=== PATIENT | male | born 1960 | race Caucasian/White ===

== ENCOUNTER 2017-12-07 11:41 | Inpatient (IN) | payer MEDICAID, OTHER ==
[~2017-12-07] VITALS: Ht 162.6 cm; Wt 63.5 kg
[2017-12-07] MEDS ORDERED: IBUP-2070 PO (11:58)
[2017-12-07 12:44] LABS: BASOPHILS % (AUTO) 1.6 % (0.0-2.0); EOSINOPHILS % (AUTO) 0.1 % (1.0-6.0); HEMATOCRIT 38.9 % (41-53); HEMOGLOBIN 13.6 g/dL (13.5-17.5); LYMPHOCYTES # (AUTO) 1.5 K/uL (1.0-4.8); MEAN CORPUSCULAR HEMOGLOBIN 34.7 pg (26.0-34.0); MEAN CORPUSCULAR HGB CONC 34.9 G/dL (31.0-37.0); MEAN CORPUSCULAR VOLUME 100 fL (80-100); MONOCYTES # (AUTO) 0.4 K/uL (0.1-1.0); NEUTROPHILS # (AUTO) 2.7 K/uL (1.8-7.7); NEUTROPHILS % (AUTO) 58.3 % (40.0-70.0); PLATELET COUNT (AUTO) 189 K/uL (150-450); RED BLOOD CELL COUNT(AUTO) 3.91 MIL/uL (4.50-5.90); RED CELL DISTRIBUTION WIDTH 14.7 % (11.5-14.5)
[2017-12-07 13:02] LABS: ANION GAP 11 mmol/L (8-16); CALCIUM, TOTAL 8.8 mg/dL (8.8-10.5); CARBON DIOXIDE 29 mmol/L (22-29); CHLORIDE 96 mmol/L (98-107); CREATININE 0.67 mg/dL (0.60-1.30); GLOMERULAR FILTR. RATE CALC > 60 mL/min (>60); GLUCOSE,RANDOM 96 mg/dL (70-110); POTASSIUM 4.7 mmol/L (3.5-5.1); SODIUM SERUM 136 mmol/L (136-145); UREA NITROGEN, BLOOD 3 mg/dL (7-18)
[2017-12-07 13:08] LABS: ALANINE AMINOTRANSFERASE 199 U/L (12-78); ALBUMIN 4.3 g/dL (3.4-5.0); ALKALINE PHOSPHATASE 94 U/L (46-116); ASPARTATE AMINOTRANSFERASE 208 U/L (15-37); BILIRUBIN,TOTAL 0.6 mg/dL (0.1-1.0); TOTAL PROTEIN, SERUM 7.9 g/dL (6.4-8.2)
[2017-12-07] MEDS ORDERED: ChlordiazePOXIDE HCL 25 MG CAPSULE PO ONE (13:30)
[2017-12-07] MEDS ORDERED: ACETAMINOPHEN 325 MG TABLET PO PRN (13:45)
[2017-12-07] MEDS ORDERED: OLANZapine 5 MG RAPDIS TABLET PO PRN (13:45)
[2017-12-07] MEDS ORDERED: HydrOXYzine PAMOATE 50 MG CAPSULE PO PRN (13:45)
[2017-12-07] MEDS ORDERED: LOPERAMIDE HCL 2 MG CAPSULE PO PRN (13:45)
[2017-12-07] MEDS ORDERED: MAGNESIUM HYDROXIDE SUSPENSION 30 ML UDCUP PO PRN (13:45)
[2017-12-07] MEDS ORDERED: MAG HYDROX/AL HYDROX/SIMETH ES 30 ML SUSPENSION UDCUP PO PRN (13:45)
[2017-12-07] MEDS ORDERED: TUBERCULIN, PURIFIED PROTEIN DERIVATIVE 5 TU/0.1 ML SYG ID ONE (13:45)
[2017-12-07] MEDS ORDERED: PROMETHAZINE HCL 25 MG TABLET PO PRN (13:45)
[2017-12-07] MEDS ORDERED: ZOLPIDEM TARTRATE 10 MG TABLET PO PRN (13:45)
[2017-12-07] MEDS ORDERED: GuaiFENesin/D-METHORPHAN [SUGAR-FREE] 200-20MG/10 ML SYRUP UDCUP PO PRN (13:45)
[2017-12-07] MEDS ORDERED: CYANOCOBALAMIN 1,000 MCG/ML VIAL IM ONE (13:45)
[2017-12-07] MEDS: DIAZEPAM 10 MG TABLET PO PRN ×2 (16:59→21:11)
[2017-12-07] MEDS: MIRTAZAPINE 15 MG TABLET PO SCH (21:10)
[2017-12-07] MEDS: THIAMINE HCL 100 MG TABLET PO SCH (21:23)
[2017-12-08] VITALS (10 sets, daily range): BP systolic 124–155; BP diastolic 73–96
[2017-12-08] MEDS ORDERED: DIAZEPAM 10 MG TABLET PO PRN (07:00)
[2017-12-08 08:55] LABS: BASOPHILS % (AUTO) 1.5 % (0.0-2.0); EOSINOPHILS % (AUTO) 0.7 % (1.0-6.0); HEMATOCRIT 38.6 % (41-53); HEMOGLOBIN 13.6 g/dL (13.5-17.5); LYMPHOCYTES # (AUTO) 1.9 K/uL (1.0-4.8); LYMPHOCYTES % (AUTO) 35.2 % (22.0-44.0); MEAN CORPUSCULAR HEMOGLOBIN 34.8 pg (26.0-34.0); MEAN CORPUSCULAR HGB CONC 35.2 G/dL (31.0-37.0); MEAN CORPUSCULAR VOLUME 99 fL (80-100); MONOCYTES # (AUTO) 0.7 K/uL (0.1-1.0); MONOCYTES % (AUTO) 12.8 % (2.0-9.0); NEUTROPHILS # (AUTO) 2.7 K/uL (1.8-7.7); NEUTROPHILS % (AUTO) 49.8 % (40.0-70.0); PLATELET COUNT (AUTO) 182 K/uL (150-450); RED CELL DISTRIBUTION WIDTH 14.5 % (11.5-14.5)
[2017-12-08] MEDS: MULTIVITAMINS WITH MINERALS, THERAPEUTIC TABLET PO SCH (09:08)
[2017-12-08] MEDS: NALTREXONE HCL 50 MG TABLET PO SCH (09:09)
[2017-12-08] MEDS: FOLIC ACID 1 MG TABLET PO SCH (09:09)
[2017-12-08] MEDS: THIAMINE HCL 100 MG TABLET PO SCH ×2 (09:09→21:03)
[2017-12-08] MEDS: DIAZEPAM 10 MG TABLET PO SCH ×4 (09:09→21:04)
[2017-12-08 09:17] LABS: ALANINE AMINOTRANSFERASE 166 U/L (12-78); ALKALINE PHOSPHATASE 88 U/L (46-116); ANION GAP 9 mmol/L (8-16); ASPARTATE AMINOTRANSFERASE 142 U/L (15-37); BILIRUBIN,TOTAL 1.4 mg/dL (0.1-1.0); CALCIUM, TOTAL 8.7 mg/dL (8.8-10.5); CARBON DIOXIDE 30 mmol/L (22-29); CHLORIDE 97 mmol/L (98-107); CHOL/HDL RATIO 1.5 (4.2-7.3); CHOLESTEROL 208 mg/dL (131-200); CREATININE 0.59 mg/dL (0.60-1.30); FREE T4 (FREE THYROXINE) 0.96 ng/dL (0.76-1.46); GLOMERULAR FILTR. RATE CALC > 60 mL/min (>60); GLUCOSE,RANDOM 97 mg/dL (70-110); HDL CHOLESTEROL 136 mg/dL (40-60); LDL CHOL (CALC.) 66 mg/dL (0-130); POTASSIUM 3.5 mmol/L (3.5-5.1); SODIUM SERUM 136 mmol/L (136-145); THYROID STIMULATING HORMONE 1.99 uIU/mL (0.36-3.74); TOTAL PROTEIN, SERUM 7.4 g/dL (6.4-8.2); TRIGLYCERIDES 29 mg/dL (15-150); UREA NITROGEN, BLOOD 6 mg/dL (7-18)
[2017-12-08 09:22] LABS: HEMOGLOBIN A1C 5.2 % (4.5-6.2)
[2017-12-08] MEDS ORDERED: DIAZEPAM 10 MG TABLET PO ONE (13:00)
[2017-12-08] MEDS: MIRTAZAPINE 15 MG TABLET PO SCH (21:03)
[2017-12-08] MEDS: BACITRACIN 28.4 GM OINTMENT TP SCH (21:04)
[2017-12-09 05:12] VITALS: BP 128/78
[2017-12-09] MEDS: PANTOPRAZOLE SODIUM 40 MG DR TABLET PO SCH (08:21)
[2017-12-09] MEDS: FOLIC ACID 1 MG TABLET PO SCH (08:21)
[2017-12-09] MEDS: BACITRACIN 28.4 GM OINTMENT TP SCH ×2 (08:23→21:42)
[2017-12-09] MEDS: MULTIVITAMINS WITH MINERALS, THERAPEUTIC TABLET PO SCH (08:23)
[2017-12-09] MEDS: NALTREXONE HCL 50 MG TABLET PO SCH (08:23)
[2017-12-09] MEDS: DIAZEPAM 10 MG TABLET PO SCH ×4 (08:23→21:42)
[2017-12-09] MEDS: THIAMINE HCL 100 MG TABLET PO SCH ×2 (08:23→21:42)
[2017-12-09 08:25] VITALS: BP 116/86
[2017-12-09 10:15] VITALS: BP 134/81
[2017-12-09] MEDS: GABAPENTIN 100 MG CAPSULE PO SCH ×3 (14:19→21:42)
[2017-12-09 16:00] VITALS: BP 131/77
[2017-12-09 20:05] VITALS: BP 117/79
[2017-12-09] MEDS: MIRTAZAPINE 15 MG TABLET PO SCH (21:44)
[2017-12-10] MEDS ORDERED: DIAZEPAM 10 MG TABLET PO PRN (07:00)
[2017-12-10] MEDS: PANTOPRAZOLE SODIUM 40 MG DR TABLET PO SCH (08:27)
[2017-12-10] MEDS: THIAMINE HCL 100 MG TABLET PO SCH (08:27)
[2017-12-10] MEDS: GABAPENTIN 100 MG CAPSULE PO SCH ×2 (08:27→13:24)
[2017-12-10] MEDS: NALTREXONE HCL 50 MG TABLET PO SCH (08:27)
[2017-12-10] MEDS: MULTIVITAMINS WITH MINERALS, THERAPEUTIC TABLET PO SCH (08:27)
[2017-12-10] MEDS: FOLIC ACID 1 MG TABLET PO SCH (08:27)
[2017-12-10] MEDS: DIAZEPAM 10 MG TABLET PO SCH ×3 (08:28→16:01)
[2017-12-10] MEDS: BACITRACIN 28.4 GM OINTMENT TP SCH (08:28)
[2017-12-10 08:30] VITALS: BP 148/91
[2017-12-10 11:00] VITALS: BP 136/90
[2017-12-10] MEDS ORDERED: DIAZEPAM 10 MG TABLET PO ONE (11:30)
[2017-12-10] MEDS ORDERED: THIA100T67 PO (11:41)
[2017-12-10] MEDS ORDERED: FOLI1 PO (11:42)
[2017-12-10] MEDS ORDERED: MULT-1239 PO (11:42)
[2017-12-10] MEDS ORDERED: MIRT15 PO (11:43)
[2017-12-10] MEDS ORDERED: GABA-529 PO (11:43)
[2017-12-10] MEDS ORDERED: NALT50TA6 PO (11:43)
[2017-12-10] MEDS ORDERED: LOPERAMIDE HCL 2 MG CAPSULE PO PRN (13:45)
[2017-12-11] MEDS ORDERED: DIAZEPAM 10 MG TABLET PO PRN (07:00)
== END 2017-12-10 16:13 | disposition short-term general hospital (02) | DRG 775 ==
LOC: EMS 11:43 → AHU 12-08 02:47
PROVIDERS: ADMIT Psychiatry & Neurology Psychiatry; ATTEND Psychiatry & Neurology Psychiatry
PROC: HZ2ZZZZ Detoxification Services for Substance Abuse Treatment (ICD-10-PCS; principal; 2017-12-08)
DX: F10.10 Alcohol abuse, uncomplicated (principal); R45.851 Suicidal ideations; K70.10 Alcoholic hepatitis without ascites; F33.9 Major depressive disorder, recurrent, unspecified; Z91.19 Patient's noncompliance with other medical treatment and regimen; I10 Essential (primary) hypertension; F17.210 Nicotine dependence, cigarettes, uncomplicated; Y90.9 Presence of alcohol in blood, level not specified; Y90.8 Blood alcohol level of 240 mg/100 ml or more
CPT/HCPCS: 83036; 84439; 84443; 86592; 96372; 99285; G0480; J3420

== ENCOUNTER 2017-12-10 16:10 | Inpatient (IN) | payer OTHER ==
[~2017-12-10 16:10] MED LIST: FOLI1 PO; GABA-529 PO; IBUP-2070 PO; MIRT15 PO; MULT-1239 PO; NALT50TA6 PO; THIA100T67 PO
[2017-12-10 18:29] VITALS: BP 134/94
[2017-12-10] MEDS ORDERED: CYANOCOBALAMIN 1,000 MCG/ML VIAL IM ONE (18:30)
[2017-12-10] MEDS ORDERED: ZOLPIDEM TARTRATE 5 MG TABLET PO PRN (18:45)
[2017-12-10] MEDS ORDERED: ALBUTEROL SULFATE 2.5 MG/0.5 ML NEB SOLUTION NEB PRN (18:45)
[2017-12-10] MEDS ORDERED: BISACODYL 10 MG RECTAL RECTAL SUPPOSITORY PR PRN (18:45)
[2017-12-10] MEDS ORDERED: IPRATROPIUM BROMIDE 0.5 MG/2.5 ML NEB SOLUTION NEB PRN (18:45)
[2017-12-10] MEDS ORDERED: MAGNESIUM HYDROXIDE SUSPENSION 30 ML UDCUP PO PRN (18:45)
[2017-12-10] MEDS: LORazepam 2 MG/ML VIAL IM PRN ×3 (19:38→23:29)
[2017-12-10] MEDS: HEPARIN SODIUM,PORCINE 5,000 UNITS/ML VIAL SQ SCH (19:46)
[2017-12-10] MEDS: ChlordiazePOXIDE HCL 25 MG CAPSULE PO SCH (19:46)
[2017-12-10] MEDS: THIAMINE HCL 100 MG TABLET PO SCH (19:46)
[2017-12-10 20:00] VITALS: BP 153/95
[2017-12-10 20:12] LABS: BASOPHILS % (AUTO) 0.5 % (0.0-2.0); EOSINOPHILS % (AUTO) 1.4 % (1.0-6.0); HEMATOCRIT 37.6 % (41-53); HEMOGLOBIN 12.8 g/dL (13.5-17.5); LYMPHOCYTES # (AUTO) 2.1 K/uL (1.0-4.8); LYMPHOCYTES % (AUTO) 28.8 % (22.0-44.0); MEAN CORPUSCULAR HEMOGLOBIN 34.3 pg (26.0-34.0); MEAN CORPUSCULAR HGB CONC 34.1 G/dL (31.0-37.0); MEAN CORPUSCULAR VOLUME 101 fL (80-100); MONOCYTES # (AUTO) 0.6 K/uL (0.1-1.0); MONOCYTES % (AUTO) 8.3 % (2.0-9.0); NEUTROPHILS # (AUTO) 4.5 K/uL (1.8-7.7); RED BLOOD CELL COUNT(AUTO) 3.73 MIL/uL (4.50-5.90); RED CELL DISTRIBUTION WIDTH 14.1 % (11.5-14.5)
[2017-12-10 20:33] LABS: HEMOGLOBIN A1C 5.2 % (4.5-6.2)
[2017-12-10 20:45] LABS: PLATELET COUNT (AUTO) 169 K/uL (150-450); PLATELET MORPHOLOGY COMMENT LARGE PLTS PRESENT
[2017-12-10 20:52] LABS: ALANINE AMINOTRANSFERASE 179 U/L (12-78); ALBUMIN 3.9 g/dL (3.4-5.0); ALKALINE PHOSPHATASE 120 U/L (46-116); ANION GAP 14 mmol/L (8-16); ASPARTATE AMINOTRANSFERASE 122 U/L (15-37); BILIRUBIN,TOTAL 0.7 mg/dL (0.1-1.0); CALCIUM, TOTAL 9.2 mg/dL (8.8-10.5); CARBON DIOXIDE 26 mmol/L (22-29); CHLORIDE 101 mmol/L (98-107); CREATINE KINASE MB 0.6 ng/mL (0-5); CREATINE KINASE, TOTAL 94 U/L (39-308); CREATININE 0.76 mg/dL (0.60-1.30); GLOMERULAR FILTR. RATE CALC > 60 mL/min (>60); GLUCOSE,RANDOM 111 mg/dL (70-110); POTASSIUM 3.7 mmol/L (3.5-5.1); SODIUM SERUM 141 mmol/L (136-145); TOTAL PROTEIN, SERUM 7.5 g/dL (6.4-8.2); UREA NITROGEN, BLOOD 8 mg/dL (7-18)
[2017-12-10 21:13] LABS: THYROID STIMULATING HORMONE 2.41 uIU/mL (0.36-3.74)
[2017-12-11] VITALS (7 sets, daily range): BP systolic 104–145; BP diastolic 65–91
[2017-12-11] MEDS: ChlordiazePOXIDE HCL 25 MG CAPSULE PO SCH ×5 (01:31→19:48)
[2017-12-11] MEDS: LORazepam 2 MG/ML VIAL IM PRN ×2 (01:36→06:34)
[2017-12-11] MEDS ORDERED: CloNIDine HCL 0.1 MG TABLET PO PRN (08:15)
[2017-12-11 08:44] LABS: FOLATE SERUM 21.6 ng/mL (5.4-)
[2017-12-11] MEDS ORDERED: LORazepam 2 MG/ML VIAL IVP PRN (08:45)
[2017-12-11 08:56] LABS: BASOPHILS % (AUTO) 1.1 % (0.0-2.0); EOSINOPHILS % (AUTO) 1.4 % (1.0-6.0); HEMATOCRIT 40.2 % (41-53); HEMOGLOBIN 13.8 g/dL (13.5-17.5); LYMPHOCYTES # (AUTO) 1.5 K/uL (1.0-4.8); LYMPHOCYTES % (AUTO) 25.3 % (22.0-44.0); MEAN CORPUSCULAR HEMOGLOBIN 34.7 pg (26.0-34.0); MEAN CORPUSCULAR HGB CONC 34.4 G/dL (31.0-37.0); MEAN CORPUSCULAR VOLUME 101 fL (80-100); MONOCYTES # (AUTO) 0.5 K/uL (0.1-1.0); MONOCYTES % (AUTO) 8.6 % (2.0-9.0); NEUTROPHILS # (AUTO) 3.9 K/uL (1.8-7.7); NEUTROPHILS % (AUTO) 63.6 % (40.0-70.0); PLATELET COUNT (AUTO) 180 K/uL (150-450); RED BLOOD CELL COUNT(AUTO) 3.99 MIL/uL (4.50-5.90); RED CELL DISTRIBUTION WIDTH 14.3 % (11.5-14.5)
[2017-12-11] MEDS: PANTOPRAZOLE SODIUM 40 MG/VIAL IVP SCH (08:57)
[2017-12-11] MEDS: THIAMINE HCL 100 MG TABLET PO SCH ×2 (08:58→19:48)
[2017-12-11] MEDS: HEPARIN SODIUM,PORCINE 5,000 UNITS/ML VIAL SQ SCH ×2 (08:58→19:49)
[2017-12-11] MEDS: FOLIC ACID 1 MG TABLET PO SCH (08:58)
[2017-12-11] MEDS: LORazepam 2 MG/ML VIAL IVP PRN ×6 (08:59→22:33)
[2017-12-11 09:02] LABS: PLATELET MORPHOLOGY COMMENT LARGE PLTS PRESENT
[2017-12-11 09:10] LABS: ALANINE AMINOTRANSFERASE 167 U/L (12-78); ALBUMIN 4.3 g/dL (3.4-5.0); ALKALINE PHOSPHATASE 103 U/L (46-116); ANION GAP 7 mmol/L (8-16); ASPARTATE AMINOTRANSFERASE 106 U/L (15-37); BILIRUBIN,TOTAL 0.9 mg/dL (0.1-1.0); CALCIUM, TOTAL 9.6 mg/dL (8.8-10.5); CARBON DIOXIDE 30 mmol/L (22-29); CHLORIDE 101 mmol/L (98-107); CREATININE 0.66 mg/dL (0.60-1.30); GLOMERULAR FILTR. RATE CALC > 60 mL/min (>60); GLUCOSE,RANDOM 79 mg/dL (70-110); POTASSIUM 3.5 mmol/L (3.5-5.1); SODIUM SERUM 138 mmol/L (136-145); TOTAL PROTEIN, SERUM 8.2 g/dL (6.4-8.2); UREA NITROGEN, BLOOD 9 mg/dL (7-18)
[2017-12-11] MEDS: AmLODIPine BESYLATE 2.5 MG TABLET PO SCH (10:19)
[2017-12-11] MEDS ORDERED: MAGNESIUM OXIDE 400 MG TABLET PO PRN (12:00)
[2017-12-11] MEDS ORDERED: MAGNESIUM SULFATE 4 GM/WATER 100 ML IV PRN (12:00)
[2017-12-11] MEDS: SODIUM CHLORIDE 0.9% 1,000 ML IV SCH ×2 (13:58→21:40)
[2017-12-12 04:00] VITALS: BP 110/75
[2017-12-12 05:55] LABS: BASOPHILS % (AUTO) 0.7 % (0.0-2.0); EOSINOPHILS % (AUTO) 0.6 % (1.0-6.0); HEMATOCRIT 34.8 % (41-53); HEMOGLOBIN 12.3 g/dL (13.5-17.5); LYMPHOCYTES # (AUTO) 1.1 K/uL (1.0-4.8); LYMPHOCYTES % (AUTO) 17.9 % (22.0-44.0); MEAN CORPUSCULAR HEMOGLOBIN 35.9 pg (26.0-34.0); MEAN CORPUSCULAR HGB CONC 35.5 G/dL (31.0-37.0); MEAN CORPUSCULAR VOLUME 101 fL (80-100); MONOCYTES # (AUTO) 0.5 K/uL (0.1-1.0); MONOCYTES % (AUTO) 8.7 % (2.0-9.0); NEUTROPHILS # (AUTO) 4.4 K/uL (1.8-7.7); NEUTROPHILS % (AUTO) 72.1 % (40.0-70.0); PLATELET COUNT (AUTO) 148 K/uL (150-450); RED BLOOD CELL COUNT(AUTO) 3.43 MIL/uL (4.50-5.90); RED CELL DISTRIBUTION WIDTH 14.2 % (11.5-14.5)
[2017-12-12 06:11] LABS: ANION GAP 9 mmol/L (8-16); CARBON DIOXIDE 26 mmol/L (22-29); CHLORIDE 104 mmol/L (98-107); CREATININE 0.72 mg/dL (0.60-1.30); GLUCOSE,RANDOM 119 mg/dL (70-110); POTASSIUM 3.4 mmol/L (3.5-5.1); SODIUM SERUM 139 mmol/L (136-145); UREA NITROGEN, BLOOD 13 mg/dL (7-18)
[2017-12-12 06:12] LABS: CALCIUM, TOTAL 8.5 mg/dL (8.8-10.5); GLOMERULAR FILTR. RATE CALC > 60 mL/min (>60)
[2017-12-12] MEDS: ChlordiazePOXIDE HCL 25 MG CAPSULE PO SCH ×4 (06:43→23:42)
[2017-12-12 07:45] VITALS: BP 126/74
[2017-12-12] MEDS: AmLODIPine BESYLATE 2.5 MG TABLET PO SCH (09:00)
[2017-12-12] MEDS: PANTOPRAZOLE SODIUM 40 MG/VIAL IVP SCH (09:16)
[2017-12-12] MEDS: HEPARIN SODIUM,PORCINE 5,000 UNITS/ML VIAL SQ SCH ×2 (09:16→19:57)
[2017-12-12] MEDS: SODIUM CHLORIDE 0.9% 1,000 ML IV SCH (09:17)
[2017-12-12 11:15] VITALS: BP 115/70
[2017-12-12] MEDS: THIAMINE HCL 100 MG TABLET PO SCH ×2 (11:43→19:57)
[2017-12-12] MEDS: ESCITALOPRAM OXALATE 10 MG TABLET PO SCH (11:43)
[2017-12-12] MEDS: FOLIC ACID 1 MG TABLET PO SCH (11:43)
[2017-12-12] MEDS: LORazepam 2 MG/ML VIAL IVP PRN ×2 (11:47→17:01)
[2017-12-12 15:24] VITALS: BP 122/64
[2017-12-12 15:54] LABS: AMPHET/METH SCREEN,URINE NEGATIVE (NEGATIVE); BARBITURATE SCREEN, URINE NEGATIVE (NEGATIVE); BENZODIAZEPINES SCREEN,URINE POSITIVE (NEGATIVE); CANNABINOID SCREEN,URINE NEGATIVE (NEGATIVE); COCAINE SCREEN,URINE NEGATIVE (NEGATIVE); METHADONE SCREEN, URINE NEGATIVE (NEGATIVE); OPIATE SCREEN,URINE NEGATIVE (NEGATIVE)
[2017-12-12 15:58] LABS: PHENCYCLIDINE SCREEN,URINE NEGATIVE (NEGATIVE)
[2017-12-12] MEDS ORDERED: POTASSIUM CHL 10 MEQ/WATER 50 ML IV PRN (16:00)
[2017-12-12 16:04] LABS: APPEARANCE,URINE CLEAR (CLEAR); GLUCOSE, URINE (UA) NEGATIVE (NEGATIVE); KETONES,URINE TRACE mg/dL (NEGATIVE); LEUKOCYTE ESTERASE ,URINE TRACE (NEGATIVE); NITRATE,URINE NEGATIVE (NEGATIVE); OCCULT BLOOD,URINE NEGATIVE (NEGATIVE); PROTEIN,URINE NEGATIVE (NEGATIVE)
[2017-12-12 16:22] LABS: BILIRUBIN,URINE PRELIM. POSITIVE (NEGATIVE)
[2017-12-12 16:32] LABS: BACTERIA,URINE Few /HPF (None Seen); RBC,URINE None Seen /HPF (0-2); SQUAMOUS EPITHELIAL CELL,UR Rare /LPF (None Seen); WBC,URINE 0-2 /HPF (0-5)
[2017-12-12] MEDS: POTASSIUM CHLORIDE 10% 40 MEQ/30 ML LIQUID UDCUP PO PRN (17:09)
[2017-12-12] MEDS: TraZODone HCL 50 MG TABLET PO SCH (19:57)
[2017-12-12 20:00] VITALS: BP 111/76
[2017-12-12 23:30] VITALS: BP 96/63
[2017-12-13 05:00] VITALS: BP 118/71
[2017-12-13] MEDS: ChlordiazePOXIDE HCL 25 MG CAPSULE PO SCH ×4 (06:18→23:12)
[2017-12-13] MEDS: POTASSIUM CHLORIDE 20 MEQ ER TABLET PO PRN (06:18)
[2017-12-13] MEDS: SODIUM CHLORIDE 0.9% 1,000 ML IV SCH ×2 (06:19→12:07)
[2017-12-13 07:31] VITALS: BP 107/65
[2017-12-13] MEDS: HEPARIN SODIUM,PORCINE 5,000 UNITS/ML VIAL SQ SCH ×2 (08:24→19:39)
[2017-12-13] MEDS: FOLIC ACID 1 MG TABLET PO SCH (08:25)
[2017-12-13] MEDS: THIAMINE HCL 100 MG TABLET PO SCH ×2 (08:25→19:39)
[2017-12-13] MEDS: PANTOPRAZOLE SODIUM 40 MG/VIAL IVP SCH (08:25)
[2017-12-13] MEDS: ESCITALOPRAM OXALATE 10 MG TABLET PO SCH (08:25)
[2017-12-13 09:58] LABS: BASOPHILS % (AUTO) 1.3 % (0.0-2.0); EOSINOPHILS % (AUTO) 1.4 % (1.0-6.0); HEMATOCRIT 32.4 % (41-53); HEMOGLOBIN 11.5 g/dL (13.5-17.5); LYMPHOCYTES # (AUTO) 1.3 K/uL (1.0-4.8); LYMPHOCYTES % (AUTO) 26.7 % (22.0-44.0); MEAN CORPUSCULAR HEMOGLOBIN 35.6 pg (26.0-34.0); MEAN CORPUSCULAR HGB CONC 35.4 G/dL (31.0-37.0); MEAN CORPUSCULAR VOLUME 101 fL (80-100); MONOCYTES # (AUTO) 0.7 K/uL (0.1-1.0); MONOCYTES % (AUTO) 14.4 % (2.0-9.0); NEUTROPHILS # (AUTO) 2.7 K/uL (1.8-7.7); NEUTROPHILS % (AUTO) 56.2 % (40.0-70.0); PLATELET COUNT (AUTO) 154 K/uL (150-450); RED BLOOD CELL COUNT(AUTO) 3.22 MIL/uL (4.50-5.90); RED CELL DISTRIBUTION WIDTH 14.3 % (11.5-14.5)
[2017-12-13 10:07] LABS: ANION GAP 11 mmol/L (8-16); CALCIUM, TOTAL 7.8 mg/dL (8.8-10.5); CARBON DIOXIDE 23 mmol/L (22-29); CHLORIDE 107 mmol/L (98-107); CREATININE 0.59 mg/dL (0.60-1.30); GLOMERULAR FILTR. RATE CALC > 60 mL/min (>60); GLUCOSE,RANDOM 111 mg/dL (70-110); POTASSIUM 3.4 mmol/L (3.5-5.1); SODIUM SERUM 141 mmol/L (136-145); UREA NITROGEN, BLOOD 14 mg/dL (7-18)
[2017-12-13 11:03] VITALS: BP 134/79
[2017-12-13] MEDS: AmLODIPine BESYLATE 2.5 MG TABLET PO SCH (11:56)
[2017-12-13] MEDS: POTASSIUM CHLORIDE 10% 40 MEQ/30 ML LIQUID UDCUP PO PRN (11:56)
[2017-12-13 13:45] VITALS: BP 130/79
[2017-12-13] MEDS: TraZODone HCL 50 MG TABLET PO SCH (19:39)
[2017-12-13 19:54] VITALS: BP 127/82
[2017-12-13] MEDS: LORazepam 2 MG/ML VIAL IVP PRN (23:12)
[2017-12-13 23:25] VITALS: BP 120/82
[2017-12-14 05:45] VITALS: BP 135/79
[2017-12-14] MEDS: ChlordiazePOXIDE HCL 25 MG CAPSULE PO SCH ×3 (06:29→17:33)
[2017-12-14 08:02] VITALS: BP 116/77
[2017-12-14] MEDS: THIAMINE HCL 100 MG TABLET PO SCH ×2 (09:00→20:27)
[2017-12-14] MEDS: HEPARIN SODIUM,PORCINE 5,000 UNITS/ML VIAL SQ SCH ×2 (09:00→20:27)
[2017-12-14] MEDS: PANTOPRAZOLE SODIUM 40 MG/VIAL IVP SCH (09:00)
[2017-12-14] MEDS: ESCITALOPRAM OXALATE 10 MG TABLET PO SCH (09:00)
[2017-12-14] MEDS: FOLIC ACID 1 MG TABLET PO SCH (09:00)
[2017-12-14] MEDS: AmLODIPine BESYLATE 2.5 MG TABLET PO SCH (09:00)
[2017-12-14] MEDS: LORazepam 2 MG/ML VIAL IVP PRN ×2 (11:18→16:31)
[2017-12-14 12:07] VITALS: BP 126/89
[2017-12-14] MEDS ORDERED: FOLIC ACID 1 MG TABLET PO SCH (15:15)
[2017-12-14 16:09] VITALS: BP 139/98
[2017-12-14 19:55] VITALS: BP 136/88
[2017-12-14] MEDS: TraZODone HCL 50 MG TABLET PO SCH (20:27)
[2017-12-15 00:20] VITALS: BP 128/84
[2017-12-15] MEDS: ChlordiazePOXIDE HCL 25 MG CAPSULE PO SCH ×4 (00:23→17:50)
[2017-12-15] MEDS: SODIUM CHLORIDE 0.9% 1,000 ML IV SCH ×3 (01:59→18:52)
[2017-12-15] MEDS: LORazepam 2 MG/ML VIAL IVP PRN (03:00)
[2017-12-15 05:00] VITALS: BP 137/93
[2017-12-15 05:52] LABS: HEMATOCRIT 34.4 % (41-53); HEMOGLOBIN 12.1 g/dL (13.5-17.5); MEAN CORPUSCULAR HEMOGLOBIN 34.7 pg (26.0-34.0); MEAN CORPUSCULAR HGB CONC 35.1 G/dL (31.0-37.0); MEAN CORPUSCULAR VOLUME 99 fL (80-100); PLATELET COUNT (AUTO) 238 K/uL (150-450); RED BLOOD CELL COUNT(AUTO) 3.48 MIL/uL (4.50-5.90); RED CELL DISTRIBUTION WIDTH 13.6 % (11.5-14.5)
[2017-12-15 05:58] LABS: ANION GAP 8 mmol/L (8-16); CALCIUM, TOTAL 8.2 mg/dL (8.8-10.5); CARBON DIOXIDE 27 mmol/L (22-29); CHLORIDE 102 mmol/L (98-107); CREATININE 0.49 mg/dL (0.60-1.30); GLOMERULAR FILTR. RATE CALC > 60 mL/min (>60); GLUCOSE,RANDOM 91 mg/dL (70-110); SODIUM SERUM 137 mmol/L (136-145); UREA NITROGEN, BLOOD 4 mg/dL (7-18)
[2017-12-15 06:38] LABS: POTASSIUM 2.9 mmol/L (3.5-5.1)
[2017-12-15] MEDS: POTASSIUM CHLORIDE 20 MEQ ER TABLET PO PRN ×3 (06:42→20:17)
[2017-12-15 07:10] LABS: BAND NEUTROPHILS % (MANUAL) 0 % (0-5)
[2017-12-15 07:14] LABS: EOSINOPHILS % (MANUAL) 1 % (1-6); LYMPHOCYTES % (MANUAL) 53 % (22-44); MONOCYTES % (MANUAL) 17 % (2-9); SEGMENTED NEUTROPHILS % 29 % (40-70)
[2017-12-15 07:27] VITALS: BP 141/91
[2017-12-15] MEDS: MAGNESIUM SULFATE 2 GM/WATER 50 ML IV PRN (08:17)
[2017-12-15] MEDS: THIAMINE HCL 100 MG TABLET PO SCH ×2 (08:17→20:17)
[2017-12-15] MEDS: AmLODIPine BESYLATE 2.5 MG TABLET PO SCH (08:18)
[2017-12-15] MEDS: HEPARIN SODIUM,PORCINE 5,000 UNITS/ML VIAL SQ SCH ×2 (08:18→20:17)
[2017-12-15] MEDS: FOLIC ACID 1 MG TABLET PO SCH (08:18)
[2017-12-15] MEDS: ESCITALOPRAM OXALATE 10 MG TABLET PO SCH (08:18)
[2017-12-15] MEDS: PANTOPRAZOLE SODIUM 40 MG/VIAL IVP SCH (08:18)
[2017-12-15 12:23] LABS: GLUCOMETER DEV NAME(LOC) 6N 2D; GLUCOSE,POINT OF CARE 113 MG/DL (70-110)
[2017-12-15 16:44] LABS: HIV 1-2 SCREEN 4TH GEN W/RFLX Non Reactive (Non Reactive)
[2017-12-15 17:06] VITALS: BP 149/94
[2017-12-15 19:12] VITALS: BP 149/95
[2017-12-15] MEDS: TraZODone HCL 50 MG TABLET PO SCH (20:17)
[2017-12-15 23:31] VITALS: BP 145/76
[2017-12-16] MEDS: ChlordiazePOXIDE HCL 25 MG CAPSULE PO SCH ×5 (00:13→23:15)
[2017-12-16 03:58] VITALS: BP 144/83
[2017-12-16 08:00] VITALS: BP 139/90
[2017-12-16] MEDS: AmLODIPine BESYLATE 2.5 MG TABLET PO SCH (08:47)
[2017-12-16] MEDS: ESCITALOPRAM OXALATE 10 MG TABLET PO SCH (08:48)
[2017-12-16] MEDS: FOLIC ACID 1 MG TABLET PO SCH (08:49)
[2017-12-16] MEDS: THIAMINE HCL 100 MG TABLET PO SCH ×2 (08:49→20:00)
[2017-12-16] MEDS: HEPARIN SODIUM,PORCINE 5,000 UNITS/ML VIAL SQ SCH ×2 (08:50→20:27)
[2017-12-16] MEDS: PANTOPRAZOLE SODIUM 40 MG/VIAL IVP SCH (08:50)
[2017-12-16] MEDS: SODIUM CHLORIDE 0.9% 1,000 ML IV SCH (11:10)
[2017-12-16] MEDS: MAGNESIUM SULFATE 2 GM/WATER 50 ML IV PRN (11:13)
[2017-12-16] MEDS: LORazepam 2 MG/ML VIAL IVP PRN (11:45)
[2017-12-16 12:01] VITALS: BP 150/87
[2017-12-16 15:50] VITALS: BP 145/97
[2017-12-16 19:30] VITALS: BP 134/92
[2017-12-16] MEDS: TraZODone HCL 50 MG TABLET PO SCH (20:00)
[2017-12-16 23:53] VITALS: BP 145/90
[2017-12-17] MEDS: SODIUM CHLORIDE 0.9% 1,000 ML IV SCH ×2 (01:16→14:56)
[2017-12-17 04:02] VITALS: BP 148/91
[2017-12-17] MEDS: ChlordiazePOXIDE HCL 25 MG CAPSULE PO SCH (05:32)
[2017-12-17 07:36] VITALS: BP 137/89
[2017-12-17] MEDS: THIAMINE HCL 100 MG TABLET PO SCH ×2 (09:04→20:06)
[2017-12-17] MEDS: ESCITALOPRAM OXALATE 10 MG TABLET PO SCH (09:04)
[2017-12-17] MEDS: PANTOPRAZOLE SODIUM 40 MG/VIAL IVP SCH (09:04)
[2017-12-17] MEDS: FOLIC ACID 1 MG TABLET PO SCH (09:04)
[2017-12-17] MEDS: AmLODIPine BESYLATE 2.5 MG TABLET PO SCH (09:04)
[2017-12-17] MEDS: HEPARIN SODIUM,PORCINE 5,000 UNITS/ML VIAL SQ SCH ×2 (09:04→20:06)
[2017-12-17 11:36] VITALS: BP 140/84
[2017-12-17] MEDS ORDERED: ChlordiazePOXIDE HCL 25 MG CAPSULE PO SCH (12:00)
[2017-12-17] MEDS ORDERED: LORazepam 2 MG/ML VIAL IVP PRN (12:45)
[2017-12-17] MEDS: MAGNESIUM SULFATE 2 GM/WATER 50 ML IV PRN (18:11)
[2017-12-17 19:00] VITALS: BP 146/90
[2017-12-17 23:00] VITALS: BP 132/74
[2017-12-18] MEDS: SODIUM CHLORIDE 0.9% 1,000 ML IV SCH (02:42)
[2017-12-18 04:00] VITALS: BP 144/94
[2017-12-18 06:04] LABS: EOSINOPHILS % (AUTO) 1.3 % (1.0-6.0); HEMATOCRIT 36.3 % (41-53); HEMOGLOBIN 12.9 g/dL (13.5-17.5); LYMPHOCYTES # (AUTO) 1.9 K/uL (1.0-4.8); LYMPHOCYTES % (AUTO) 35.4 % (22.0-44.0); MEAN CORPUSCULAR HEMOGLOBIN 34.8 pg (26.0-34.0); MEAN CORPUSCULAR HGB CONC 35.6 G/dL (31.0-37.0); MEAN CORPUSCULAR VOLUME 98 fL (80-100); MONOCYTES # (AUTO) 0.7 K/uL (0.1-1.0); MONOCYTES % (AUTO) 12.6 % (2.0-9.0); NEUTROPHILS # (AUTO) 2.6 K/uL (1.8-7.7); NEUTROPHILS % (AUTO) 49.7 % (40.0-70.0); PLATELET COUNT (AUTO) 420 K/uL (150-450); RED BLOOD CELL COUNT(AUTO) 3.72 MIL/uL (4.50-5.90); RED CELL DISTRIBUTION WIDTH 13.4 % (11.5-14.5)
[2017-12-18 06:17] LABS: ALANINE AMINOTRANSFERASE 53 U/L (12-78); ALBUMIN 3.4 g/dL (3.4-5.0); ALKALINE PHOSPHATASE 76 U/L (46-116); ANION GAP 10 mmol/L (8-16); ASPARTATE AMINOTRANSFERASE 37 U/L (15-37); BILIRUBIN,TOTAL 0.5 mg/dL (0.1-1.0); CALCIUM, TOTAL 8.7 mg/dL (8.8-10.5); CARBON DIOXIDE 26 mmol/L (22-29); CHLORIDE 99 mmol/L (98-107); CREATININE 0.55 mg/dL (0.60-1.30); GLOMERULAR FILTR. RATE CALC > 60 mL/min (>60); GLUCOSE,RANDOM 93 mg/dL (70-110); POTASSIUM 3.3 mmol/L (3.5-5.1); SODIUM SERUM 135 mmol/L (136-145); TOTAL PROTEIN, SERUM 6.8 g/dL (6.4-8.2); UREA NITROGEN, BLOOD 5 mg/dL (7-18)
[2017-12-18 07:32] VITALS: BP 139/87
[2017-12-18] MEDS: HEPARIN SODIUM,PORCINE 5,000 UNITS/ML VIAL SQ SCH (08:39)
[2017-12-18] MEDS: PANTOPRAZOLE SODIUM 40 MG/VIAL IVP SCH (08:39)
[2017-12-18] MEDS: POTASSIUM CHLORIDE 10% 40 MEQ/30 ML LIQUID UDCUP PO PRN (08:39)
[2017-12-18] MEDS: FOLIC ACID 1 MG TABLET PO SCH (08:40)
[2017-12-18] MEDS: AmLODIPine BESYLATE 2.5 MG TABLET PO SCH (08:40)
[2017-12-18] MEDS: THIAMINE HCL 100 MG TABLET PO SCH (08:41)
[2017-12-18] MEDS: MAGNESIUM SULFATE 2 GM/WATER 50 ML IV PRN (09:35)
[2017-12-18 11:03] VITALS: BP 146/86
[2017-12-18 15:30] VITALS: BP 140/80
== END 2017-12-18 17:15 | disposition home or self-care (01) | DRG 280 ==
LOC: 6N 16:10
PROVIDERS: ADMIT Internal Medicine Geriatric Medicine; ATTEND Internal Medicine Geriatric Medicine
DX: K70.10 Alcoholic hepatitis without ascites (principal); G93.40 Encephalopathy, unspecified; F10.231 Alcohol dependence with withdrawal delirium; E51.2 Wernicke's encephalopathy; F33.2 Major depressive disorder, recurrent severe without psychotic features; F12.90 Cannabis use, unspecified, uncomplicated; F17.210 Nicotine dependence, cigarettes, uncomplicated; E83.42 Hypomagnesemia; E87.6 Hypokalemia; D64.9 Anemia, unspecified; I10 Essential (primary) hypertension; R74.0 Nonspecific elevation of levels of transaminase and lactic acid dehydrogenase [LDH]; Z91.19 Patient's noncompliance with other medical treatment and regimen; Z86.73 Personal history of transient ischemic attack (TIA), and cerebral infarction without residual deficits; Z79.899 Other long term (current) drug therapy
CPT/HCPCS: 70450; 70551; 76700; 80074; 80307; 82306; 82607; 82746; 83036; 83735; 84132; 84145; 84439; 84443; 86592; 86706; 86803; 87389; 92526; 92610; 93306; 97112; 97162; 97166; 97530; 97535; 99366; C9113; J1644; J2060; J3420; J3475; J7030